=== PATIENT | male | born 1940 | race Caucasian/White ===

== ENCOUNTER 2016-07-06 10:08 | Emergency (ER) | payer MEDICARE, OTHER ==
[~2016-07-06] VITALS: Ht 175.3 cm; Wt 80.0 kg
[2016-07-06 10:17] VITALS: BP 0/0
[2016-07-06] MEDS ORDERED: MULT1CAP32 PO (11:35)
[2016-07-06] MEDS ORDERED: LOSA50TA37 PO (11:35)
[2016-07-06] MEDS ORDERED: GUAI100S97 PO (11:35)
[2016-07-06] MEDS ORDERED: TAMS0.4C32 PO (11:35)
[2016-07-06] MEDS ORDERED: ASPI81TA42 PO (11:35)
[2016-07-06] MEDS ORDERED: IBUP-2070 PO (11:35)
[2016-07-06] MEDS ORDERED: SERT100T12 PO (11:35)
[2016-07-06] MEDS ORDERED: CALC-1009 PO (11:35)
[2016-07-06] MEDS ORDERED: LEVO125 PO (11:35)
[2016-07-06] MEDS ORDERED: PSEU30TA31 PO (11:35)
[2016-07-06] MEDS ORDERED: [UNRECOGNIZED DRUG - CODE] PO (11:35)
[2016-07-06] MEDS ORDERED: ATOR40TA28 PO (11:35)
[2016-07-06] MEDS ORDERED: ACET9.6D PO (11:35)
[2016-07-06] MEDS ORDERED: SODIUM BICARBONATE [ADULT] 8.4% 50 MEQ/50 ML SYRINGE IVP ONE (12:00)
[2016-07-06] MEDS ORDERED: EPINEPHrine 1:10,000 [1 MG/10 ML] SYRINGE IVP ONE (12:00)
== END 2016-07-06 14:52 | disposition expired ==
LOC: EMS 10:11
DX: I46.9 Cardiac arrest, cause unspecified (principal)
CPT/HCPCS: 82962; 92950; 99291; J0171; J3490